=== PATIENT | female | born 1960 | race Caucasian/White ===

== ENCOUNTER 2018-08-05 08:35 | Day surgery (SDC) | payer OTHER ==
[~2018-08-05 08:35] MED LIST: Lactated Ringers 1,000 ML IV SCH; Sodium Chloride 0.9% 10 ML Syringe FLUSH PRN
[2018-08-05] MEDS ORDERED: Propofol 200 MG/20 ML SDV ONE ×2 (09:36→10:46)
[2018-08-05] MEDS ORDERED: fentaNYL 100 MCG/2 ML SDV ONE (09:36)
--- NOTE | 2018-08-05 11:21 | OR ---
PREOPERATIVE DIAGNOSIS: Screening colonoscopy. POSTOPERATIVE DIAGNOSIS: Cecal polyps x2. PROCEDURE PROPOSED: Total flexible colonoscopy. PROCEDURE DONE: Total flexible colonoscopy with hot snare polypectomy x1, cold biopsy forceps polypectomy x1. INDICATION: This is a 57-year-old female referred for her 1st colonoscopic exam for screening purposes. She denies any family history and she has no symptoms. TECHNIQUE: The patient brought to the endoscopy suite, placed in left lateral decubitus position. She was sedated per SIGNAL HELPER with propofol. The flexible video colonoscope was then passed transanally and under visualization advanced to the cecum. In the cecal area, a couple of polyps were found, 1 moderate-sized, removed by hot snare technique and retrieved with suction. The other 1 was small and removed with 1 bite of the cold biopsy forceps. These polyps were then submitted for pathologic examination. The remainder of the examination of the ascending, transverse, descending, sigmoid, and rectal colon was essentially unremarkable. There was no evidence of any other polyps, colitis, diverticulosis, or any other abnormality, and the scope was then withdrawn. The patient tolerated the procedure well. FINAL IMPRESSION: Cecal polyps x2. PLAN: The patient will be sent a letter with pathology report. I felt that she should have colonic surveillance hereafter every 5 years. SCM: 08/05/2018 10:58:29 MODL: 08/05/2018 11:11:48 /[id number]
[2018-08-05 11:31] VITALS: BP 112/49
--- NOTE | 2018-08-16 10:45 | LETTER ---
08/16/2018 Jv Swain RE: JV SWAIN : 1960 The polyps removed from your colon were tubular adenomas, which are considered precancerous type polyps. There were no worrisome changes within your polyps, but I would recommend that you have colonoscopies every 5 years hereafter due to this finding. Respectfully,
== END 2018-08-05 12:08 | disposition home or self-care (01) ==
LOC: VM.SDS 08:35
PROVIDERS: ATTEND Surgery
DX: Z12.11 Encounter for screening for malignant neoplasm of colon (principal); K63.5 Polyp of colon; D12.0 Benign neoplasm of cecum; G47.33 Obstructive sleep apnea (adult) (pediatric); K21.9 Gastro-esophageal reflux disease without esophagitis; F43.23 Adjustment disorder with mixed anxiety and depressed mood; K27.9 Peptic ulcer, site unspecified, unspecified as acute or chronic, without hemorrhage or perforation; R00.2 Palpitations; Z87.19 Personal history of other diseases of the digestive system; M51.36 Other intervertebral disc degeneration, lumbar region; Z79.899 Other long term (current) drug therapy; Z99.89 Dependence on other enabling machines and devices
CPT/HCPCS: 00812; 45384; 45385; J2704; J3010; J7120

== ENCOUNTER 2021-03-05 15:55 | Inpatient (IN) | payer OTHER ==
[2021-03-05] MEDS ORDERED: Iopamidol 755 Mg/ML 100 ML Bottle IVPUSH ONE (17:30)
[2021-03-05] MEDS: dexAMETHasone 2 MG, dexAMETHasone 4 MG PO SCH ×2 (18:12)
[2021-03-05] MEDS: Zinc Sulfate 220 MG Cap PO SCH (18:12)
--- NOTE | 2021-03-05 18:35 | CT ---
[id number] CT/CTA Chest EXAM: CTA Chest CLINICAL DATA: ELEVATED D-DIMER, SHORTNESS OF BREATH. COMPARISON STUDY: None. FINDINGS: Lungs: Scattered nonmass-like and geographic appearing mixed density parenchymal opacities scattered throughout both lungs. Findings are consistent with COVID pneumonia. Bronchitis/bronchiolitis as well. No pleural effusion or pneumothorax. Mediastinum: No mediastinal or hilar lymphadenopathy. Heart and great vessels: Cardiomegaly. No pericardial effusion. Thoracic aorta is normal in caliber. Pulmonary arteries are normal in caliber. Negative for pulmonary embolus. Bones: No acute fracture or compression deformity. Spondylosis. Upper abdomen: Sliding-type hiatus hernia. IMPRESSION: Negative for pulmonary embolus. COVID pneumonia. Christian Bowers MD 03/05/21 [id number] Thank you for allowing us to participate in the care of your patient.
[2021-03-05] MEDS ORDERED: Enoxaparin 40 MG/0.4 ML Syringe SUBCUT ONE (20:00)
[2021-03-05] MEDS: Ascorbic Acid 500 MG Tab PO SCH (20:54)
--- NOTE | 2021-03-05 21:09 | PCM.HP.2 ---
H&P History of Present Illness - General Date of Service: 03/05/21 Admit Problem/Dx: Admission Diagnosis/Problem Admission Diagnosis/Problem Respiratory failure Source of Information: Patient History Limitations: Reports: No Limitations - History of Present Illness Initial Comments - Free Text/Narative: Mrs. Ospina is a 60 yo female with PMH of MARK, mood disorder, PUD, GERD, and degenerative disc disease who presented to clinic for evaluation of persistent cough and shortness of breath since her diagnosis of COVID on 02/22. Symptoms started on 02/22 with mainly myalgias. This then progressed over the next few days to include cough, shortness of breath, fever, chills, headaches, and congestion. She has had some diarrhea but no vomiting. Appetite is very poor but she has been trying to push fluids. She has been generally weak and fatigued. She had a positive test for COVID through [facility] on 02/26. She is not vaccinated and did not opt to receive MAB therapy. Her also had COVID recently as did many of her family members. She would not say she has been feeling worse; she just feels that her symptoms have not been improving at all. - Related Data Allergies/Adverse Reactions: Allergies Allergy/AdvReac Type Severity Reaction Status Date / Time No Known Allergies Allergy Verified 08/05/18 09:09 Home Medications: Home Meds Cholecalciferol (Vitamin D3) [Vitamin D3] 1,000 unit PO DAILY 04/23/14 [History] Gluc Arevalo/Chondro Arevalo A/Vit C/Mn [Glucosamine 1,500 Complex Cp] 1 cap PO DAILY 04/23/14 [History] Multivitamin with Minerals [Multiple Vitamin] 1 each PO DAILY 04/23/14 [History] Escitalopram [Lexapro] 10 mg PO DAILY 08/01/18 [History] Omeprazole Magnesium [Prilosec Otc] 20 mg PO DAILY 08/01/18 [History] Triamcinolone Acetonide [Triamcinolone Acetonide 0.1% Crm] 1 applic TID PRN 08/01/18 [History] buPROPion HCL [Wellbutrin Xl] 300 mg PO DAILY 08/01/18 [History] Magnesium Oxide 250 mg PO DAILY 03/05/21 [History] Past Medical History - Past Health History Medical/Surgical History: Denies Medical/Surgical History HEENT History: Reports: None Cardiovascular History: Reports: Other (See Below) Other Cardiovascular History: palpatations, varicose veins Respiratory History: Reports: Sleep Apnea, Other (See Below) Other Respiratory History: difficult airway for intubation Gastrointestinal History: Reports: GERD, Pancreatitis, PUD Genitourinary History: Reports: None Musculoskeletal History: Reports: Other (See Below) Other Musculoskeletal History: degenerative disc disease Neurological History: Reports: None Psychiatric History: Reports: Other (See Below) Other Psychiatric History: mood disorder Endocrine/Metabolic History: Reports: Obesity/BMI 30+ Hematologic History: Reports: None Immunologic History: Reports: None Oncologic (Cancer) History: Reports: None Dermatologic History: Reports: Eczema - Infectious Disease History Infectious Disease History: Reports: Chicken Pox, Measles, Mumps, Novel Coronavirus - Past Surgical History HEENT Surgical History: Reports: Cataract Surgery GI Surgical History: Reports: Cholecystectomy, EGD Female Surgical History: Reports: Breast Biopsy Social & Family History - Family History Cardiac: Reports: Hypertension Neurological: Reports: CVA Endocrine/Metabolic: Reports: Diabetes, type II - Tobacco Use Tobacco Use Status *Q: Never Tobacco User - Alcohol Use Alcohol Use History: No Date of Last Drink: 01/13/21 - Recreational Drug Use Recreational Drug Use: No - Living Situation & Occupation Living situation: Reports: , with Spouse H&P Review of Systems - Review of Systems: Review Of Systems: See Below General: Reports: Fever, Chills, Malaise, Weakness, Fatigue, Decreased Appetite HEENT: Reports: Headaches, Sinus Congestion. Denies: Sore Throat Pulmonary: Reports: Shortness of Breath, Cough Cardiovascular: Reports: No Symptoms Gastrointestinal: Reports: Diarrhea. Denies: Abdominal Pain, Nausea, Vomiting Genitourinary: Reports: No Symptoms Musculoskeletal: Reports: No Symptoms Skin: Reports: No Symptoms Psychiatric: Reports: No Symptoms Neurological: Reports: No Symptoms Hematologic/Lymphatic: Reports: No Symptoms Exam - Exam Exam: See Below - Vital Signs Vital Signs: Last Vital Signs Temp 36.7 C 03/05/21 20:55 Pulse 69 03/05/21 20:55 Resp 18 03/05/21 20:55 BP 113/60 03/05/21 20:55 Pulse Ox 92 L 03/05/21 20:55 Weight: 95.254 kg - Exam General: Alert, Oriented, Cooperative HEENT: Conjunctiva Clear, Mucosa Moist & [place], Posterior Pharynx Clear, Pupils Equal, Pupils Reactive Neck: Supple, Trachea Midline Lungs: Normal Respiratory Effort, Crackles (scattered throughout) Cardiovascular: Regular Rate, Regular Rhythm, Normal S1, Normal S2 GI/Abdominal Exam: Normal Bowel Sounds, Soft, Non-Tender, No Organomegaly, No Distention, No Mass Extremities: Normal Inspection, Non-Tender, No Pedal Edema, Normal Capillary Refill Peripheral Pulses: 2+: Radial (L), Radial (R) Skin: Warm, Dry, Intact Neuro Extensive - Mental Status: Alert, Oriented x3, Normal Mood/Affect Sepsis Event Note - Evaluation Sepsis Screening Result: No Definite Risk - Focused Exam Vital Signs: Vital Signs Temp Pulse Resp BP Pulse Ox Pulse Ox 03/05/21 20:55 36.7 C 69 18 113/60 92 L 03/05/21 16:01 37.2 C 66 18 117/66 93 L 92 L - Problem List (1) Respiratory failure SNOMED Code(s): 644435189 ICD Code: J96.90 - RESPIRATORY FAILURE, UNSP, UNSP W HYPOXIA OR HYPERCAPNIA Status: Acute Current Visit: Yes Qualifiers: Chronicity: acute Respiratory failure complication: hypoxia Qualified Cod e(s): J96.01 - Acute respiratory failure with hypoxia (2) COVID SNOMED Code(s): 230367614 ICD Code: U07.1 - COVID-19 Status: Acute Current Visit: Yes (3) GERD (gastroesophageal reflux disease) SNOMED Code(s): 697924379 ICD Code: K21.9 - GASTRO-ESOPHAGEAL REFLUX DISEASE WITHOUT ESOPHAGITIS Status: Chronic Current Visit: Yes Qualifiers: Esophagitis presence: esophagitis presence not specified Qualified Code(s): K21.9 - Gastro-esophageal reflux disease without esophagitis (4) Mood disorder SNOMED Code(s): 20020347 ICD Code: F39 - UNSPECIFIED MOOD [AFFECTIVE] DISORDER Status: Chronic Current Visit: Yes (5) Obesity SNOMED Code(s): 101520675, 882160900 ICD Code: E66.9 - OBESITY, UNSPECIFIED Status: Chronic Current Visit: Yes Problem List Initiated/Reviewed/Updated: Yes Orders Last 24hrs: Active Orders 24 hr Category Date Time Status Patient Status [ADT] Routine ADT 03/05/21 16:01 Active Notify Provider Vital Signs [RC] 08,20 Care 03/05/21 16:04 Active Oxygen Therapy [RC] Care 03/05/21 16:01 Active Up With Assistance [RC] Care 03/05/21 16:01 Active VTE/DVT Education [RC] .PRN Care 03/05/21 16:01 Active Vital Signs [RC] 02,06,10,14,18,22 Care 03/05/21 16:01 Active Regular Diet [DIET] Diet 03/05/21 Dinner Active BASIC METABOLIC PANEL,BMP [CHEM] Routine Lab 03/06/21 05:11 Ordered CBC WITH AUTO DIFF [HEME] Routine Lab 03/06/21 05:11 Ordered Ascorbic Acid [Vitamin C] Med 03/05/21 20:00 Active 1,000 mg PO BID Cholecalciferol (Vitamin D3) [Vitamin D3] Med 03/06/21 08:00 Active 25 mcg PO DAILY Citalopram [Celexa] Med 03/06/21 08:00 Active 10 mg PO DAILY Enoxaparin [Lovenox] Med 03/05/21 19:30 Pending 40 mg SUBCUT Q24H Pantoprazole [ProTONIX] Med 03/06/21 08:00 Active 40 mg PO DAILY Zinc Sulfate [Zincate] Med 03/05/21 16:15 Active 220 mg PO DAILY buPROPion [Wellbutrin XL] Med 03/06/21 08:00 Active 300 mg PO DAILY dexAMETHasone 6 MG Med 03/05/21 16:15 Active 6 mg PO DAILY Resuscitation Status Routine Resus Stat 03/05/21 16:01 Ordered Medication Orders Ascorbic Acid (Ascorbic Acid 500 Mg Tab) 1,000 mg PO BID [facility] Last Admin: 03/05/21 20:54 Dose: 1,000 mg Documented by: CHILO Bupropion HCl (Bupropion 150 Mg Tab.Er) 300 mg PO DAILY [facility] Cholecalciferol (Cholecalciferol (Vitamin D3) 25 Mcg Tab) 25 mcg PO DAILY [facility] Citalopram Hydrobromide (Citalopram 10 Mg Tab) 10 mg PO DAILY [facility] Dexamethasone 2 mg/ (Dexamethasone 4 mg) 6 mg PO DAILY [facility] Last Admin: 03/05/21 18:12 Dose: 6 mg Documented by: MYA Enoxaparin Sodium (Enoxaparin 40 Mg/0.4 Ml Syringe) 40 mg SUBCUT Q24H [facility] Pantoprazole Sodium (Pantoprazole 40 Mg Tab.Cr) 40 mg PO DAILY [facility] Zinc Sulfate (Zinc Sulfate 220 Mg Cap) 220 mg PO DAILY [facility] Last Admin: 03/05/21 18:12 Dose: 220 mg Documented by: MYA Assessment/Plan Comment:: 60 yo female admitted with acute hypoxic respiratory failure secondary to COVID- 19. #1 Hypoxic respiratory failure #2 COVID-19 - D-dimer elevated but CTA negative for PE. Shows viral pneumonia without other findings. Lab results do not suggest bacterial pneumonia. - COVID protocol: dexamethasone, vitamin C, vitamin D, and zinc. - Discussed remdesivir, which patient declines. - O2 to keep oxygen sats in the 92-94% range. Will wean as able. #3 GERD #4 Mood disorder #5 Obesity - Continue home medications. Patient will be admitted to [facility] with diagnosis as above. Since she declined remdesivir, we did discuss d/c home on home oxygen but that there would be no medical assistance immediately available if she were to decompensate. She was agreeable to admission. Anticipate admission for at least 2 nights to monitor stability of oxygen requirements. Code status is full - discussed on admission. Lovenox for VTE prophylaxis. - Mortality Measure Prognosis:: Good
[2021-03-06 07:27] LABS: ANION GAP 15.2 mmol/L (5-15)
--- NOTE | 2021-03-06 08:09 | PCM.PN ---
- General Info Date of Service: 03/06/21 Subjective Update: 60 yo female hospital day #2 admitted with hypoxic respiratory failure secondary to COVID. Patient states she is maybe feeling a little better today. Taste still terrible and she does not have much appetite. Still having diarrhea. No vomiting. No fever or chills. Cough persists and remains dry. Not really feeling short of breath today. Has not been out of bed much. - Review of Systems General: Reports: No Symptoms HEENT: Reports: No Symptoms Pulmonary: Reports: Cough. Denies: Shortness of Breath Cardiovascular: Reports: No Symptoms Gastrointestinal: Reports: Decreased Appetite, Diarrhea. Denies: Abdominal Pain, Vomiting Genitourinary: Reports: No Symptoms Musculoskeletal: Reports: No Symptoms Skin: Reports: No Symptoms Neurological: Reports: No Symptoms - Patient Data Vitals - Most Recent: Last Vital Signs Temp 36.4 C 03/06/21 06:00 Pulse 60 03/06/21 06:00 Resp 18 03/06/21 06:00 BP 125/67 03/06/21 06:00 Pulse Ox 93 L 03/06/21 06:00 Weight - Most Recent: 95.254 kg I&O - Last 24 Hours: Intake & Output 03/05/21 03/06/21 03/06/21 22:59 06:59 14:59 Intake Total 400 Output Total 600 Balance -200 Lab Results Last 24 Hours: Laboratory Results - last 24 hr 03/06/21 03/06/21 Range/Units 06:58 06:58 WBC 4.6 (4.0-10.0) x10^3/uL RBC 4.16 (4.00-5.50) x10^6/uL Hgb 12.6 (12.0-16.0) g/dL Hct 38.0 (33.0-47.0) % MCV 91.3 (78.0-93.0) fL MCH 30.3 (26.0-32.0) pg MCHC 33.2 (32.0-36.0) g/dL RDW Coeff of Vladimir 12.8 (10.0-15.0) % Plt Count 286 (130-400) x10^3/uL Immature Gran % (Auto) 0.40 (0.00-0.43) % Neut % (Auto) 83.4 H (50.0-80.0) % Lymph % (Auto) 12.9 L (25.0-50.0) % [place] % (Auto) 3.1 (2.0-11.0) % Eos % (Auto) 0.0 (0.0-4.0) % Baso % (Auto) 0.2 (0.2-1.2) % Neut # (Auto) 3.8 (1.8-7.7) x10^3/uL Lymph # (Auto) 0.6 L (1.0-4.8) x10^3/uL [place] # (Auto) 0.1 (0.0-0.8) x10^3/uL Eos # (Auto) 0.0 (0.0-0.5) x10^3/uL Baso # (Auto) 0.0 (0.0-0.2) x10^3/uL Immature Gran # (Auto) 0.02 (0.00-0.07) x10^3/uL Sodium 138 (136-145) mmol/L Potassium 4.2 (3.5-5.1) mmol/L Chloride 103 (98-107) mmol/L Carbon Dioxide 24 (21-32) mmol/L Anion Gap 15.2 H (5-15) mmol/L BUN 26 H (7-18) mg/dL Creatinine 1.0 (0.55-1.02) mg/dL Est Cr Clr Drug Dosing 48.25 mL/min Estimated GFR (MDRD) 56 Glucose 152 H (70-99) mg/dL Calcium 9.0 (8.5-10.1) mg/dL Med Orders - Current: Current Medications Ascorbic Acid (Ascorbic Acid 500 Mg Tab) 1,000 mg PO BID [facility] Last Admin: 03/05/21 20:54 Dose: 1,000 mg Documented by: Bupropion HCl (Bupropion 150 Mg Tab.Er) 300 mg PO DAILY [facility] Cholecalciferol (Cholecalciferol (Vitamin D3) 25 Mcg Tab) 25 mcg PO DAILY [facility] Citalopram Hydrobromide (Citalopram 10 Mg Tab) 10 mg PO DAILY [facility] Dexamethasone 2 mg/ (Dexamethasone 4 mg) 6 mg PO DAILY [facility] Last Admin: 03/05/21 18:12 Dose: 6 mg Documented by: Enoxaparin Sodium (Enoxaparin 40 Mg/0.4 Ml Syringe) 40 mg SUBCUT Q24H [facility] Pantoprazole Sodium (Pantoprazole 40 Mg Tab.Cr) 40 mg PO DAILY [facility] Zinc Sulfate (Zinc Sulfate 220 Mg Cap) 220 mg PO DAILY [facility] Last Admin: 03/05/21 18:12 Dose: 220 mg Documented by: Discontinued Medications Enoxaparin Sodium (Enoxaparin 40 Mg/0.4 Ml Syringe) 40 mg SUBCUT ONETIME ONE Stop: 03/05/21 20:01 Last Admin: 03/05/21 20:54 Dose: 40 mg Documented by: Iopamidol (Iopamidol 755 Mg/Ml 100 Ml Bottle) 68 ml IVPUSH ONETIME ONE Stop: 03/05/21 17:31 Last Admin: 03/05/21 17:31 Dose: 68 ml Documented by: - Exam General: Alert, Oriented, Cooperative, No Acute Distress HEENT: Mucous Membr. Moist/[place] Neck: Supple, Trachea Midline, No Thyromegaly. No: Lymphadenopathy Lungs: Normal Respiratory Effort, Crackles (scattered throughout both lungs) Cardiovascular: Regular Rate, Regular Rhythm, No Murmurs GI/Abdominal Exam: Normal Bowel Sounds, Soft, Non-Tender, No Organomegaly, No Distention, No Mass Extremities: Normal Inspection, Non-Tender, No Pedal Edema, Normal Capillary Refill Peripheral Pulses: 2+: Radial (L), Radial (R) Skin: Warm, Dry, Intact Neurological: No New Focal Deficit - Patient Data Lab Results Last 24 hrs: Laboratory Results - last 24 hr 03/06/21 03/06/21 Range/Units 06:58 06:58 WBC 4.6 (4.0-10.0) x10^3/uL RBC 4.16 (4.00-5.50) x10^6/uL Hgb 12.6 (12.0-16.0) g/dL Hct 38.0 (33.0-47.0) % MCV 91.3 (78.0-93.0) fL MCH 30.3 (26.0-32.0) pg MCHC 33.2 (32.0-36.0) g/dL RDW Coeff of Vladimir 12.8 (10.0-15.0) % Plt Count 286 (130-400) x10^3/uL Immature Gran % (Auto) 0.40 (0.00-0.43) % Neut % (Auto) 83.4 H (50.0-80.0) % Lymph % (Auto) 12.9 L (25.0-50.0) % [place] % (Auto) 3.1 (2.0-11.0) % Eos % (Auto) 0.0 (0.0-4.0) % Baso % (Auto) 0.2 (0.2-1.2) % Neut # (Auto) 3.8 (1.8-7.7) x10^3/uL Lymph # (Auto) 0.6 L (1.0-4.8) x10^3/uL [place] # (Auto) 0.1 (0.0-0.8) x10^3/uL Eos # (Auto) 0.0 (0.0-0.5) x10^3/uL Baso # (Auto) 0.0 (0.0-0.2) x10^3/uL Immature Gran # (Auto) 0.02 (0.00-0.07) x10^3/uL Sodium 138 (136-145) mmol/L Potassium 4.2 (3.5-5.1) mmol/L Chloride 103 (98-107) mmol/L Carbon Dioxide 24 (21-32) mmol/L Anion Gap 15.2 H (5-15) mmol/L BUN 26 H (7-18) mg/dL Creatinine 1.0 (0.55-1.02) mg/dL Est Cr Clr Drug Dosing 48.25 mL/min Estimated GFR (MDRD) 56 Glucose 152 H (70-99) mg/dL Calcium 9.0 (8.5-10.1) mg/dL Result Diagrams: 03/06/21 06:58 03/06/21 06:58 Sepsis Event Note - Evaluation Sepsis Screening Result: No Definite Risk - Focused Exam Vital Signs: Vital Signs Temp Pulse Resp BP Pulse Ox Pulse Ox 03/06/21 06:00 36.4 C 60 18 125/67 93 L 03/06/21 02:00 35.8 C L 58 L 18 125/66 92 L 03/05/21 20:55 36.7 C 69 18 113/60 92 L 03/05/21 20:20 93 L - Problem List & Annotations (1) Respiratory failure SNOMED Code(s): 255008645 Code(s): J96.90 - RESPIRATORY FAILURE, UNSP, UNSP W HYPOXIA OR HYPERCAPNIA Status: Acute Current Visit: Yes Qualifiers: Chronicity: acute Respiratory failure complication: hypoxia Qualified Code(s): J96.01 - Acute respiratory failure with hypoxia (2) COVID SNOMED Code(s): 982462569 Code(s): U07.1 - COVID-19 Status: Acute Current Visit: Yes (3) GERD (gastroesophageal reflux disease) SNOMED Code(s): 412522686 Code(s): K21.9 - GASTRO-ESOPHAGEAL REFLUX DISEASE WITHOUT ESOPHAGITIS Status: Chronic Current Visit: Yes Qualifiers: Esophagitis presence: esophagitis presence not specified Qualified Code(s): K21.9 - Gastro-esophageal reflux disease without esophagitis (4) Mood disorder SNOMED Code(s): 30813913 Code(s): F39 - UNSPECIFIED MOOD [AFFECTIVE] DISORDER Status: Chronic Current Visit: Yes (5) Obesity SNOMED Code(s): 311896139, 057093856 Code(s): E66.9 - OBESITY, UNSPECIFIED Status: Chronic Current Visit: Yes - Problem List Review Problem List Initiated/Reviewed/Updated: Yes - My Orders Last 24 Hours: My Active Orders 03/05/21 16:01 Patient Status [ADT] Routine Oxygen Therapy [RC] 08,20 Up With Assistance [RC] 08,20 VTE/DVT Education [RC] .PRN Vital Signs [RC] 02,06,10,14,18,22 Resuscitation Status Routine 03/05/21 16:04 Notify Provider Vital Signs [RC] .PRN 03/05/21 16:15 Zinc Sulfate [Zincate] 220 mg PO DAILY dexAMETHasone 6 MG 6 mg PO DAILY 03/05/21 Dinner Regular Diet [DIET] 03/05/21 20:00 Ascorbic Acid [Vitamin C] 1,000 mg PO BID 03/06/21 08:00 Cholecalciferol (Vitamin D3) [Vitamin D3] 25 mcg PO DAILY Citalopram [Celexa] 10 mg PO DAILY Enoxaparin [Lovenox] 40 mg SUBCUT Q24H Pantoprazole [ProTONIX] 40 mg PO DAILY buPROPion [Wellbutrin XL] 300 mg PO DAILY 03/07/21 05:11 C-REACTIVE PROTEIN [CHEM] Routine CBC WITH AUTO DIFF [HEME] Routine COMPREHENSIVE METABOLIC PN,CMP [CHEM] Routine FERRITIN [CHEM] Routine LACTATE DEHYDROGENASE,LDH [CHEM] Routine - Assessment Assessment:: 60 yo female hospital day #2 admitted with hypoxic respiratory failure secondary to COVID. Feeling a little better this morning. O2 requirements essentially stable - did increase from 3L to 4L overnight but also does not have her CPAP. Labs ok. - Plan Plan:: #1 Hypoxic respiratory failure #2 COVID-19 - D-dimer elevated but CTA negative for PE. Shows viral pneumonia without other findings. Lab results do not suggest bacterial pneumonia. - COVID protocol: dexamethasone, vitamin C, vitamin D, and zinc. - Discussed remdesivir, which patient declines. - O2 to keep oxygen sats in the 92-94% range. Will wean as able. #3 GERD #4 Mood disorder #5 Obesity - Continue home medications. Patient will remain on acute today - if O2 requirements remain stable over the next 24 hours, likely can d/c home with home O2. Code status is full - discussed on admission. Lovenox for VTE prophylaxis.
[2021-03-06] MEDS: Ascorbic Acid 500 MG Tab PO SCH ×2 (09:27→21:00)
[2021-03-06] MEDS: Cholecalciferol (Vitamin D3) 25 MCG Tab PO SCH (09:27)
[2021-03-06] MEDS: buPROPion 150 MG Tab.ER PO SCH (09:27)
[2021-03-06] MEDS: Pantoprazole 40 MG Tab.CR PO SCH (09:28)
[2021-03-06] MEDS: dexAMETHasone 2 MG, dexAMETHasone 4 MG PO SCH ×2 (09:28)
[2021-03-06] MEDS: Citalopram 10 MG Tab PO SCH (09:28)
[2021-03-06] MEDS: Zinc Sulfate 220 MG Cap PO SCH (09:28)
[2021-03-06] MEDS: Enoxaparin 40 MG/0.4 ML Syringe SUBCUT SCH (09:38)
[2021-03-07 08:51] LABS: ANION GAP 14.2 mmol/L (5-15)
[2021-03-07] MEDS: buPROPion 150 MG Tab.ER PO SCH (09:05)
[2021-03-07] MEDS: Ascorbic Acid 500 MG Tab PO SCH (09:06)
[2021-03-07] MEDS: Zinc Sulfate 220 MG Cap PO SCH (09:06)
[2021-03-07] MEDS: Pantoprazole 40 MG Tab.CR PO SCH (09:06)
[2021-03-07] MEDS: Citalopram 10 MG Tab PO SCH (09:07)
[2021-03-07] MEDS: Cholecalciferol (Vitamin D3) 25 MCG Tab PO SCH (09:07)
[2021-03-07] MEDS: dexAMETHasone 2 MG, dexAMETHasone 4 MG PO SCH ×2 (09:07)
[2021-03-07] MEDS: Enoxaparin 40 MG/0.4 ML Syringe SUBCUT SCH (09:09)
--- NOTE | 2021-03-07 10:01 | PN ---
Progress Note for JV SWAIN Date: 03/07/2021 Room #: VM.209 SUBJECTIVE: The patient is feeling better. She still though required oxygen of at least 4 L as she was not able to maintain at 3 L. Otherwise, her appetite is good. She is feeling better. She is eager to be discharged home. She was disappointed that oxygen arrangements were not set up for her for today to go home. OBJECTIVE: Vital Signs: Her temperature is 36.2, pulse is 59, blood pressure is 135/70, saturations are 91 on 4 L, respiratory rate 16. Heart: Regular rate and rhythm. Lungs: Have diminished breath sounds on bases. Abdomen: Soft. LABORATORY DATA: Her lab today shows her white blood cell count up to 11.0, hemoglobin 12.7, platelets 376, 81 segs, 8 lymphocytes. Sodium 140, potassium 4.2, creatinine 1.0, GFR 56, ferritin is high 1238, AST 21, ALT 33, alkaline phosphatase 61, LDH is 281, CRP 7.6. IMPRESSION: 1. COVID pneumonia. 2. Respiratory failure secondary to COVID. 3. Obstructive sleep apnea. 4.. Gastroesophageal reflux disease. 5. Mood disorder. 6.. Obesity. PLAN: The patient again declined remdesivir and so she will just be on her dexamethasone right now as well as zinc, vitamin C, vitamin D. She is continued on Lovenox and we will need to continue her here on acute care. She has oxygen requirements. We will repeat a chest x-ray today on her. CXR looks stable. GM03/07/2021 09:28:08 MODL: 03/07/2021 09:52:33 /[id number] MTDD
--- NOTE | 2021-03-07 12:51 | PCM.SN.2 ---
- Free Text/Narrative Note: [facility] and [facility] are able to get her set up with home oxygen. So will set up for discharge. Will need dexadrone for 7 more days.
--- NOTE | 2021-03-07 13:53 | DISCH ---
PRIMARY DIAGNOSES: 1. COVID-19 pneumonia. 2. Respiratory failure secondary to COVID pneumonia. 3. Obstructive sleep apnea. 4. Gastroesophageal reflux disease. 5. Mood disorder. 6. Obesity. SUMMARY OF ADMIT HISTORY AND PHYSICAL: The patient is a 60-year-old female who had presented to the clinic on 03/05/21, after having been short of breath witth COVID symptomes that started actually on 02/22/2021. The patient had persistent myalgias, but then it was noted that the patient became more short of breath and had lower oxygen levels. The patient actually had a positive test by 02/26/2021. She had not been vaccinated, and she had opted not to receive monoclonal antibody infusion. Her also recently had COVID. The patient needed supplemental oxygen to keep her saturations above 92% to 94%. SUMMARY OF HOSPITAL COURSE: She was hospitalized from 03/05/21 to 03/07/21. The patient's physical exam on admission showed her lungs to have normal respiratory effort, scattered breath sounds throughout. Her initial lab work was done at the clinic and is not available to me here at the hospital. Her blood work that was done on 03/06/2021, showed a white blood cell count 4.6, hemoglobin 12.6, platelets are 286 with 83 segs, 12 lymphocytes. Sodium 138, potassium 4.2, creatinine 1.0, BUN 26, glucose 152. The patient was placed on oral Decadron, however, she declined remdesivir treatment as well. Her oxygen requirements were up to 4 L at a time and she was difficult to wean down. However, by 03/07, she was able to get down to 2 L. Her lab work that was done on 03/07 showed a white blood cell count of 11.0. Her ferritin was high at 1238. Her alkaline phosphatase 61, LDH 281, CRP 7.6. The patient did not require any sort of nebulized treatments or inhalers. She was placed on Lovenox for DVT prophylaxis. The patient did receive zinc, vitamin C, and vitamin D while she was on acute care, but patient was not felt to need those at home. Because of the holiday day on 03/07, [facility] was not available. However, patient herself contacted [facility] and was able to get home oxygen set up and so she will go home at 2 L.Paperwork was filled out for [facility]. She will continue to try to lay prone. MEDICATIONS AT DISCHARGE: 1. Oxygen at 2 L. 2. Decadron 6 mg 1 pill daily for 7 additional days. 3. Citalopram 10 mg daily. 4. Wellbutrin XR 300 mg daily. 5. Omeprazole 20 mg daily. 6 Vitamin D prehospital dose of 1000 mg daily 7. Multivitamin daily. 8. glucosamine 1 capsule daily, 9. triamcinolonecream 3 times a day as needed. 10.magnesium oxide 250 mg daily. FOLLOWUP: The patient is to follow up with Dr. Aydee Adkins in a week's time for a recheck. Over 30 minutes of time was spent on discharging patient. GM03/07/2021 13:04:50 MODL: 03/07/2021 13:42:09 /[id number] MTDD
[2021-03-07 14:31] VITALS: BP 116/61; PULSE 75
--- NOTE | 2021-03-10 11:17 | CR ---
[id number] RAD/RAD Chest PA or AP 1V EXAM: SINGLE VIEW CHEST. INDICATION: PNEUMONIA COVID COMPARISON: CORRELATION IS MADE WITH THE RECENT CT ANGIOGRAPHY CHEST FINDINGS: Bilateral infiltrates are seen The cardiac silhouette is enlarged IMPRESSION: MILD BILATERAL PNEUMONIA Earnest Samuels MD 03/10/21 0738 Thank you for allowing us to participate in the care of your patient.
== END 2021-03-07 18:00 | disposition home or self-care (01) | DRG 177 ==
LOC: VM.MS 15:55
PROVIDERS: ADMIT Family Medicine; ATTEND Family Medicine
PROC: 3E0DX3Z Introduction of Anti-inflammatory into Mouth and Pharynx, External Approach (ICD-10-PCS; principal; 2021-03-05)
DX: U07.1 COVID-19 (principal); J12.82 Pneumonia due to coronavirus disease 2019; J96.01 Acute respiratory failure with hypoxia; G47.33 Obstructive sleep apnea (adult) (pediatric); K21.9 Gastro-esophageal reflux disease without esophagitis; F39 Unspecified mood [affective] disorder; E66.9 Obesity, unspecified; Z79.899 Other long term (current) drug therapy; Z98.49 Cataract extraction status, unspecified eye; Z90.49 Acquired absence of other specified parts of digestive tract
CPT/HCPCS: 36415; 71045; 71275; 80048; 80053; 82728; 83615; 85025; 86140; A9270-GY; J1650; J8540; Q9967

== ENCOUNTER 2024-02-03 08:40 | Day surgery (SDC) | payer OTHER ==
[2024-02-03] MEDS: Lactated Ringers 1,000 ML IV SCH (09:03)
[2024-02-03] MEDS ORDERED: fentaNYL 100 MCG/2 ML SDV ONE (10:35)
[2024-02-03] MEDS ORDERED: Propofol 200 MG/20 ML SDV ONE ×4 (10:35→12:02)
[2024-02-03 12:52] VITALS: BP 144/78; PULSE 68
== END 2024-02-03 13:34 | disposition home or self-care (01) ==
LOC: VM.SDS 08:40
PROVIDERS: ATTEND Family Medicine
DX: Z12.11 Encounter for screening for malignant neoplasm of colon (principal); D12.0 Benign neoplasm of cecum; D12.6 Benign neoplasm of colon, unspecified; K57.30 Diverticulosis of large intestine without perforation or abscess without bleeding; Z86.0100 Personal history of colon polyps, unspecified; I10 Essential (primary) hypertension; G47.33 Obstructive sleep apnea (adult) (pediatric); E66.01 Morbid (severe) obesity due to excess calories; Z68.42 Body mass index [BMI] 45.0-49.9, adult; Z79.899 Other long term (current) drug therapy
CPT/HCPCS: 00811; J2704; J3010; J7120